=== PATIENT | male | born 1985 | race Caucasian/White ===

== ENCOUNTER → 2019-03-09 16:45 | Outpatient (CLI) | payer OTHER, SELFPAY ==
--- NOTE | 2019-03-09 14:00 | LES_PTH ---
PATIENT: MARIJA LANCASTER LOC: [facility] U#:[id number] AGE/SX: 39/M ROOM: RE03/09/[address]: Dr. Miguel Jolley MD : 1985 BED: DIS: SPEC #: [id number] RECD: 03/09/19 16:37 STATUS: ARACELI NANCIE #: [id number] BETH: 03/09/19 14:[address]: Miguel Jolley DEPT: SURGICAL PATHOLOGY RECD BY: Shay Dveries ENTERED: 03/10/19 08:46 SP TYPE: Lesion OTHR DR: Dr. Yohan Snyder, Tissues: Skin of trunk, NOS Procedures: Surgery Specimen Level IV HEADER OPERATION: Excision of umbilical skin lesion PRE-OP DIAGNOSIS: Dysplastic nevus of trunk D23.5 TISSUE SUBMITTED: Excision of trunk nevus MICROSCOPIC DIAGNOSIS Trunk nevus, excision: Dermal fibrosis, consistent with scar. A minute focus of junctional nevus. See comment. SJ:rosamaria 03/11/19 COMMENT As per the patient's EMR, the patient has history of moderately dysplastic nevus removed by shave biopsy at this area. Changes consistent with dysplastic nevus are not seen. MICROSCOPIC DESCRIPTION Slides are reviewed. GROSS DESCRIPTION Received in fixative is one container labeled with the patient's name and designated trunk nevus. The specimen consists of a feng-white skin ellipse measuring 2 x 0.9 cm and up to 0.3 cm in thickness. The specimen is inked, serially sectioned and submitted entirely in one cassette. / ILENE:rosamaria 03/10/19 TC:1 CPT: 08135
[2019-03-09 14:43] VITALS: BMI 29.8
== END ==
PROVIDERS: Family Provider Family Medicine; PCP Family Medicine; Referring Provider Surgery; Visit Provider Surgery
DX: D23.5 Other benign neoplasm of skin of trunk (principal)
CPT/HCPCS: 88305